=== PATIENT | female | born 1965 | race Caucasian/White ===

== ENCOUNTER 2019-07-07 16:11 | Emergency (ER) | payer OTHER, MEDICAID ==
[~2019-07-07] VITALS: Ht 165.1 cm; Wt 54.4 kg
[2019-07-07] MEDS ORDERED: ZINC SULFATE220 MG PO (16:43)
[2019-07-07] MEDS ORDERED: PROTONIX 20 MG20 M1 PO (16:44)
[2019-07-07] MEDS ORDERED: HEARTBURN RELIE10 MG PO (16:44)
[2019-07-07] MEDS ORDERED: MAGNESIUM250 M1 PO (16:44)
[2019-07-07] MEDS ORDERED: ALBUTEROL2.5 MG/31 INH (16:44)
[2019-07-07] MEDS ORDERED: TESSALON PERLE100 MG PO (16:48)
[2019-07-07] MEDS ORDERED: PREDNISONE 20 M20 MG PO (16:48)
[2019-07-07] MEDS ORDERED: ZPAK PO (16:48)
== END 2019-07-07 16:58 | disposition home or self-care (01) ==
LOC: M.ERS 16:11
DX: J20.9 Acute bronchitis, unspecified (principal); K21.9 Gastro-esophageal reflux disease without esophagitis; J44.9 Chronic obstructive pulmonary disease, unspecified; Z88.0 Allergy status to penicillin

== ENCOUNTER 2020-09-16 12:02 | Emergency (ER) | payer OTHER, MEDICAID ==
[~2020-09-16] VITALS: Ht 165.1 cm; Wt 54.4 kg
[~2020-09-16 12:02] MED LIST: ALBUTEROL2.5 MG/31 INH; HEARTBURN RELIE10 MG PO; MAGNESIUM250 M1 PO; PREDNISONE 20 M20 MG PO; PROTONIX 20 MG20 M1 PO; TESSALON PERLE100 MG PO; ZINC SULFATE220 MG PO; ZPAK PO
[2020-09-16 12:40] LABS: ABSOLUTE EOSINOPHILS 0.1 thou/uL (0.0-0.7); ABSOLUTE LYMPHOCYTES 1.6 thou/uL (0.8-5.3); ABSOLUTE MONOCYTES 0.3 thou/uL (0.0-1.2); ABSOLUTE NEUTROPHILS 2.6 thou/uL (1.6-8.1); BASOPHILS 0.5 %; EOSINOPHILS 1.1 %; HEMOGLOBIN 14.6 gm/dL (12.0-15.0); LYMPHOCYTES 35.7 %; MCH 32.7 pg (26.0-34.0); MCHC 34.9 g/dL (28.0-37.0); MCV 93.8 fL (80.0-100.0); MONOCYTES 6.1 %; MPV 7.8 fl. (7.2-11.1); NUCLEATED RBCS 0 /100WBC; PLATELET COUNT* 199 thou/uL (150-400); POLYS 56.6 %; RBC 4.48 mil/uL (4.20-5.00); RDW-CV 13.2 % (10.5-14.5); WBC 4.6 thou/uL (4.0-11.0)
[2020-09-16 12:48] LABS: CALCIUM 8.9 mg/dL (8.5-10.1); CREATININE 0.8 mg/dL (0.6-1.3); POTASSIUM 3.9 mmol/L (3.5-5.1)
[2020-09-16 12:51] LABS: APTT 28.4 Seconds (25.0-31.3); PROTIME 10.3 Seconds (9.20-11.50)
[2020-09-16 13:02] LABS: ALBUMIN 3.6 g/dL (3.4-5.0); MAGNESIUM 2.2 mg/dL (1.8-2.4); TOTAL BILIRUBIN 0.3 mg/dL (<0.1-1.0); TOTAL PROTEIN 6.7 g/dL (6.4-8.2)
[2020-09-16 13:13] LABS: URINE BILIRUBIN NEGATIVE (Negative); URINE BLOOD NEGATIVE (Negative); URINE CLARITY CLEAR; URINE COLOR YELLOW; URINE GLUCOSE-RANDOM NEGATIVE (Negative); URINE KETONES NEGATIVE (Negative); URINE LEUKOCYTES-REFLEX NEGATIVE (Negative); URINE NITRITE-REFLEX NEGATIVE (Negative); URINE PROTEIN NEGATIVE (Negative); URINE SPECIFIC GRAVITY <= 1.005 (1.005-1.030); URINE UROBILINOGEN 0.2 E.U./dl (0.2-1.0)
[2020-09-16] MEDS ORDERED: VENTOLIN HFA 1818 GM INH (13:21)
[2020-09-16 14:21] VITALS: BP 113/65
--- NOTE | 2020-09-16 16:33 | EKG ---
[place] [address] ELECTROCARDIOGRAM REPORT Name: KWANJUSTIN Room: [facility]#: [id number] Admission: 09/16/20 Attend Phys: Discharge: 09/16/20 Date of : 67 Date of Service: 09/16/20 1204 Report #: [id number] THIS REPORT FOR: //name// [facility] ED Test Date: 2020-09-16 Test Time: 12:04:39 Pat Name: JUSTIN KWAN Department: Room: Gender: Attendance Clerk: : 1965 Requested By: Erika Lake Order Number: [id number] MD: Ezekiel Berger Measurements Intervals [place] Rate: 65 P: 60 FL: 158 QRS: 55 QRSD: 101 T: 61 QT: 398 QTc: 414 Interpretive Statements Sinus rhythm Low voltage, precordial leads No previous ECG available for comparison Electronically Signed On 09-16-2020 16:33:16 [employer] COORDINATOR by Ezekiel Berger [email or web address] <ELECTRONICALLY SIGNED> By: Ezekiel Berger MD, [facility] 09/16/20 1633 1204 1204 Ezekiel Berger MD, [facility] /EPI
== END 2020-09-16 14:22 | disposition home or self-care (01) ==
LOC: M.ERS 12:02
PROVIDERS: Nurse Practitioner Family
DX: R07.89 Other chest pain (principal); R06.00 Dyspnea, unspecified; K21.9 Gastro-esophageal reflux disease without esophagitis; J44.9 Chronic obstructive pulmonary disease, unspecified; F17.210 Nicotine dependence, cigarettes, uncomplicated; Z88.0 Allergy status to penicillin